=== PATIENT | male | born 1985 | race Caucasian/White ===

== ENCOUNTER 2025-04-03 20:35 | Emergency (ER) | payer BC ==
[2025-04-03] MEDS ORDERED: Fluorescein Opthalmic Strip ONE (21:06)
[2025-04-03] MEDS ORDERED: Tetracaine 0.5% PF 4 ML BOT ONE (21:07)
== END 2025-04-03 21:45 | disposition home or self-care (01) ==
LOC: MADERS 20:35
DX: S05.02XA Injury of conjunctiva and corneal abrasion without foreign body, left eye, initial encounter (principal); X58.XXXA Exposure to other specified factors, initial encounter
CPT/HCPCS: 99283